=== PATIENT | female | born 1985 | race Hispanic/Latino ===

== ENCOUNTER 2022-03-13 15:35 | Inpatient (IN) | payer BC ==
[~2022-03-13 15:35] MED LIST: Bupivacaine 0.25% HCL 30 ML VIAL ONE; Bupivacaine HCl 0.5%/Epinephrine 1:200,000/PF 30 ml Vial ONE; Bupivacaine/Epinephrine 0.25% 30 ML VIAL ONE
[2022-03-13] MEDS ORDERED: Docusate 100 MG CAP PO PRN (15:57)
[2022-03-13] MEDS ORDERED: Ondansetron PF 4 MG/2 ML Vial IVP PRN ×2 (15:57→20:45)
[2022-03-13] MEDS ORDERED: Misoprostol 200 MCG TAB PR PRN (15:57)
[2022-03-13] MEDS ORDERED: Zolpidem Tartrate 5 MG TAB PO PRN (15:57)
[2022-03-13] MEDS ORDERED: Butorphanol Tartrate 1 MG/ML VIAL SLOW IVP PRN (15:57)
[2022-03-13] MEDS ORDERED: Lidocaine 1% (PF) 30 ML VIAL SC PRN (15:57)
[2022-03-13] MEDS ORDERED: Diphenoxylate HCl/Atropine Tablet PO PRN ×2 (15:57)
[2022-03-13] MEDS ORDERED: HYDROcodone/Acetaminophen 5/325 mg Tablet PO PRN ×2 (15:57)
[2022-03-13] MEDS ORDERED: Ibuprofen 800 MG TAB PO PRN (15:57)
[2022-03-13] MEDS ORDERED: Acetaminophen 500 MG TAB PO PRN (15:57)
[2022-03-13] MEDS ORDERED: hydrALAZINE 20 MG/ML VIAL SLOW IVP PRN (15:57)
[2022-03-13] MEDS ORDERED: Promethazine HCl 25 MG/ML VIAL IM PRN ×2 (15:57→20:45)
[2022-03-13] MEDS ORDERED: Lactated Ringer's 1,000 ML IV SCH (16:00)
[2022-03-13] MEDS ORDERED: NS w/ Oxytocin 30 units 500 ML IV SCH (16:00)
[2022-03-13 16:08] VITALS: BMI 30.7
[2022-03-13 16:55] LABS: Hemoglobin 13.2 g/dL (12.0-15.5); Mean Corpuscular HGB CONC 36.1 g/dL (32.0-36.0); Mean Corpuscular Hemoglobin 32.7 pg (27.0-33.0); Mean Corpuscular Volume 90.6 fl (81.6-98.3); Mean Platelet Volume 9.4 fl (7.4-10.4); Platelet Count 181 10x3/uL (150-450); RBC Distribution Width 12.1 % (11.5-14.5); Red Blood Cell (RBC) Count 4.04 10x6/uL (3.90-5.03); White Blood Cell (WBC) Count 12.6 10x3/uL (3.5-10.5)
[2022-03-13 17:29] LABS: HIV (1/2) Antibody/Antigen Non-Reactive (NonReactive); Hep B Surf Ag Non-Reactive S/CO (NonReactive)
[2022-03-13 17:30] LABS: Syphilis Antibody Nonreactive (Nonreactive); Syphilis Antibody Index 0.03 S/CO (<1.00 Non-Reactive)
[2022-03-13 17:35] LABS: HBSAg Index 0.14 S/CO (0-0.99)
[2022-03-13 19:13] LABS: SARS-CoV-2 NAA Rapid Test Not Detected (NotDetected)
[2022-03-13] MEDS ORDERED: Fentanyl 2 mcg/Bup 0.1% Cadd 100 ML ONE (19:55)
[2022-03-13] MEDS ORDERED: Fentanyl 2 mcg/Bupivacaine 0.1% Cassette 100 ML EPIDURAL SCH (20:45)
[2022-03-13] MEDS ORDERED: Acetaminophen 325 MG TAB PO PRN (20:45)
[2022-03-13] MEDS ORDERED: diphenhydrAMINE 50 MG/ML VIAL IVP PRN (20:45)
[2022-03-13] MEDS ORDERED: Naloxone HCl 0.4 mg/ml Vial IVP PRN ×2 (20:45)
[2022-03-13] MEDS ORDERED: Communication Order-Pharmacy FS SCH (20:45)
[2022-03-13] MEDS ORDERED: Moisturizing Cream (Eucerin) 113 GM JAR TOP PRN (20:45)
[2022-03-13] MEDS ORDERED: ePHEDrine Sulfate 50 MG/10 ML VIAL SLOW IVP PRN (20:45)
[2022-03-13] MEDS ORDERED: Lactated Ringer's 500 ML IV PRN (20:45)
[2022-03-14] MEDS ORDERED: Boostrix 0.5 ML (Tdap) VIAL IM ONE (05:05)
[2022-03-14] MEDS ORDERED: hydrALAZINE 20 MG/ML VIAL SLOW IVP PRN (05:05)
[2022-03-14] MEDS ORDERED: Lanolin Ointment 7 GM TUBE TOP PRN (05:05)
[2022-03-14] MEDS ORDERED: Milk Of Magnesia 30 ML UDCUP PO PRN (05:05)
[2022-03-14] MEDS ORDERED: Ondansetron PF 4 MG/2 ML Vial IVP PRN (05:05)
[2022-03-14] MEDS ORDERED: diphenhydrAMINE 25 MG CAP PO PRN (05:05)
[2022-03-14] MEDS ORDERED: Misoprostol 200 MCG TAB VAG PRN (05:05)
[2022-03-14] MEDS ORDERED: Preparation H Ointment 28 GM TUBE PR PRN (05:05)
[2022-03-14] MEDS ORDERED: HYDROcodone/Acetaminophen 5/325 mg Tablet PO PRN ×2 (05:05)
[2022-03-14] MEDS ORDERED: Bisacodyl 10 MG SUPP PR PRN (05:05)
[2022-03-14] MEDS ORDERED: Zolpidem Tartrate 5 MG TAB PO PRN (05:05)
[2022-03-14] MEDS ORDERED: Benzocaine-Menthol 82.5 ML CAN TOP PRN (05:05)
[2022-03-14] MEDS ORDERED: Acetaminophen 325 MG TAB PO PRN (05:06)
[2022-03-14] MEDS ORDERED: Witch Hazel-Glycerin 1 EACH JAR TOP PRN (05:06)
[2022-03-14] MEDS ORDERED: NS w/ Oxytocin 30 units 500 ML IV SCH (06:00)
[2022-03-14] MEDS: Ibuprofen 800 MG TAB PO SCH ×3 (07:42→21:16)
[2022-03-14] MEDS: Ferrous Sulfate 325 MG TAB PO SCH ×2 (08:42→17:18)
[2022-03-14] MEDS: Docusate 100 MG CAP PO SCH ×2 (08:42→21:16)
[2022-03-14] MEDS: Prenatal Vitamin 1 TAB PO SCH (08:42)
[2022-03-15 04:38] LABS: Hemoglobin 10.6 g/dL (12.0-15.5); Mean Corpuscular HGB CONC 35.6 g/dL (32.0-36.0); Mean Corpuscular Volume 92.8 fl (81.6-98.3); Mean Platelet Volume 9.4 fl (7.4-10.4); Platelet Count 140 10x3/uL (150-450); RBC Distribution Width 12.3 % (11.5-14.5); Red Blood Cell (RBC) Count 3.21 10x6/uL (3.90-5.03)
[2022-03-15] MEDS: Ibuprofen 800 MG TAB PO SCH ×2 (05:00→13:56)
[2022-03-15 07:56] VITALS: TEMP 97.9
[2022-03-15] MEDS: Prenatal Vitamin 1 TAB PO SCH (08:41)
[2022-03-15] MEDS: Ferrous Sulfate 325 MG TAB PO SCH (08:42)
[2022-03-15] MEDS: Docusate 100 MG CAP PO SCH (08:42)
[2022-03-15 09:09] VITALS: BP 116/61
== END 2022-03-15 15:40 | disposition home or self-care (01) | DRG 807 ==
LOC: CSHLD/OP 15:35 → CSHLD 17:40 → CSHPP 03-14 07:25
PROVIDERS: ADMIT Obstetrics & Gynecology; ATTEND Obstetrics & Gynecology
PROC: 10E0XZZ Delivery of Products of Conception, External Approach (ICD-10-PCS; principal; 2022-03-14)
PROC: 10907ZC Drainage of Amniotic Fluid, Therapeutic from Products of Conception, Via Natural or Artificial Opening (ICD-10-PCS; 2022-03-14)
PROC: 0HQ9XZZ Repair Perineum Skin, External Approach (ICD-10-PCS; 2022-03-14)
DX: O70.0 First degree perineal laceration during delivery (principal); Z37.0 Single live birth; Z3A.38 38 weeks gestation of pregnancy; Z20.822 Contact with and (suspected) exposure to COVID-19
CPT/HCPCS: 36415; 51702; 85027; 86780; 86850; 86900; 86901; 87340; 87389; J2590; J7120; S0020; U0002

== ENCOUNTER 2023-12-04 10:12 | Outpatient (CLI) | payer BC | END 2023-12-04 10:13 | disposition home or self-care (01) | LOC: CSHMAMMO 10:12 | PROVIDERS: ATTEND Obstetrics & Gynecology | DX: Z12.31 Encounter for screening mammogram for malignant neoplasm of breast (principal) | CPT/HCPCS: 77063; 77067 ==